=== PATIENT | female | born 1940 ===

== ENCOUNTER 2016-09-23 21:23 | Inpatient (IN) | payer MEDICARE, MEDICAID ==
[~2016-09-23] VITALS: Ht 162.6 cm; Wt 74.8 kg
--- NOTE | 2016-09-23 21:32 | NUR ---
PATIENT C/O SUDDEN ON SET OF LEFT PAIN. PAIN STARTED 2 DAYS AGO BUT HAS GOTTEN WORSE IN THE LAST DAY, PT IS ALERT, ORIENTED X 4, NO RESP DISTRESS NOTED OR REPORTED UPON ASSESSMENT... MD AT BEDSIDE...
[2016-09-23] MEDS ORDERED: HYDROMORPHONE 1 MG/1 ML DISP.SYRIN IV ONE (21:45)
[2016-09-23] MEDS ORDERED: IV NORMAL SALINE 1000 ML BAG IV ONE (21:45)
[2016-09-23] MEDS ORDERED: ONDANSETRON 4 MG/2 ML VIAL IV ONE (21:45)
[2016-09-23] MEDS ORDERED: HYDROMORPHONE 1 MG/1 ML DISP.SYRIN ONE (22:10)
[2016-09-23] MEDS ORDERED: ONDANSETRON 4 MG/2 ML VIAL ONE (22:10)
--- NOTE | 2016-09-23 22:20 | NUR ---
PATIENT OUT OF UNIT FOR CT SCAN VIA GURNY
--- NOTE | 2016-09-23 22:35 | NUR ---
PATIENT BACK FROM CT SCAN WITH NO DISTRESS NOTED
--- NOTE | 2016-09-23 23:43 | NUR ---
EPIC CONTACTED PER MEENA, MANAGER MASS TO HAVE PAGED....
[2016-09-24] MEDS ORDERED: LOSA1TAB39 PO (00:02)
[2016-09-24] MEDS ORDERED: PROP20TA7 PO (00:02)
[2016-09-24] MEDS ORDERED: LEVO88TA2 PO (00:02)
[2016-09-24] MEDS ORDERED: ASPI-605 PO (00:02)
[2016-09-24] MEDS ORDERED: MULT1TAB73 PO (00:02)
[2016-09-24] MEDS ORDERED: ESCI20TA37 PO (00:02)
[2016-09-24] MEDS ORDERED: ACYC400T PO (00:02)
[2016-09-24] MEDS ORDERED: ATOR10TA PO (00:02)
[2016-09-24] MEDS ORDERED: IV NORMAL SALINE 1000 ML BAG IV ONE (00:30)
[2016-09-24] MEDS ORDERED: IV D5 1/2 NS 1000 ML 1,000 ML IV PRN (01:20)
--- NOTE | 2016-09-24 01:22 | NUR ---
Pt. admitted to MED SUR[facility] , under care of Dr. Rehana Garza, Belongs List completed, pt is alert, oriented x 4, no resp distress noted or reported upon transfer assessment...
[2016-09-24] MEDS ORDERED: ZOLPIDEM 5 MG TABLET PO PRN (01:30)
[2016-09-24] MEDS ORDERED: Z GUARD REMEDY PASTE 57 GM TUBE TOP PRN (01:30)
[2016-09-24] MEDS ORDERED: ACETAMINOPHEN 325 MG TABLET PO PRN (01:30)
[2016-09-24] MEDS ORDERED: HYDROCODONE/APAP 5-325MG TABLET PO PRN (01:30)
[2016-09-24] MEDS ORDERED: ONDANSETRON 4 MG/2 ML VIAL IV PRN (01:30)
[2016-09-24] MEDS ORDERED: MAGNESIUM HYDROXIDE 30 ML LIQUID UDC PO PRN (01:30)
[2016-09-24 02:15] VITALS: BP 123/65
--- NOTE | 2016-09-24 02:15 | NUR ---
ADMITTED THIS76 Y.O.LADY FROM HOME,CHIEF C/O LEFT HIP PAIN 2DAYS AGO,ACCOMPANIED BY DTR.ELLIS..SHE HAS HAD AN EXTENSIVE MEDICAL HISTORY,ALERT,ORIENTED X4,ABLE TO UNDERSTAND SIMPLE URUGUAYAN,SPEAKS FARSI,DIDNT WANT TO BE ADMITTED IN THIS HOSPITAL,WANTS TO BE TRANSFERRED TO [facility].IV ACCESS ON RT.AC PATENT AND INTACT,USES FRACTURE NIETO,VOIDED FREELY WELL.KEPT DRY AND CLEAN.NO C/O PAIN AT TIME OF ARRIVAL.
[2016-09-24 04:00] VITALS: BP 118/62
--- NOTE | 2016-09-24 04:30 | NUR ---
COMPLETE LINEN CHANGE DONE,MYLENE CARE RENDERED.KEPT Warm and dry,call lite w/i reach.REQUESTED TO JUST LEAVE HER ALONE AND LET HER SLEEP.
--- NOTE | 2016-09-24 06:00 | NUR ---
REPOSITIONED FOR COMFORT,NEEDS ATTENDE TO.IVF INFUSING WELL.NPO OBSERVED.
[2016-09-24] MEDS: MORPHINE SULFATE 2 MG/1 ML DISP.SYRIN IV PRN (06:16)
[2016-09-24] MEDS: PANTOPRAZOLE SODIUM 40 MG TABLET.DR PO SCH (06:16)
[2016-09-24] MEDS ORDERED: MORPHINE SULFATE 2 MG/1 ML DISP.SYRIN ONE (06:17)
[2016-09-24] MEDS: ASPIRIN EC 81 MG TABLET.DR PO SCH (09:00)
[2016-09-24] MEDS ORDERED: Medication Not On Formulary EA (Multivitamins (Multivitamin) 1 EACH) PO SCH (09:00)
--- NOTE | 2016-09-24 09:15 | NUR ---
MEDS PULLED OUT FROM [facility] AND TAKEN OFF MAR DUE TO DUPLICATION.
[2016-09-24] MEDS ORDERED: MULTIVITAMINS,THERAPEUTIC TABLET ONE (09:16)
[2016-09-24] MEDS ORDERED: ASPIRIN EC 81 MG TABLET.DR PO ONE (09:16)
[2016-09-24] MEDS ORDERED: DOCUSATE SODIUM 250 MG CAPSULE PO ONE (09:16)
[2016-09-24] MEDS ORDERED: ACYCLOVIR 400 MG TABLET ONE (09:16)
[2016-09-24] MEDS ORDERED: PROPRANOLOL HCL 20 MG TABLET ONE (09:16)
[2016-09-24] MEDS ORDERED: PANTOPRAZOLE SODIUM 40 MG TABLET.DR PO ONE (09:17)
[2016-09-24] MEDS ORDERED: LEVOTHYROXINE SODIUM 88 MCG TABLET ONE (09:17)
--- NOTE | 2016-09-24 09:30 | NUR ---
SPOKE TO DAUGHTER RE. PT. STATUS. DAUGHTER STATED THAT PT. HAS HISTORY/TREATMENTS AT [facility]. IN ADDITION NO LABS TO BE DRAWN OR SURGERY PLANNED UNTIL SHE HAS SPOKEN TO [facility] PROVIDERS AT [facility].
[2016-09-24] MEDS: LEVOTHYROXINE SODIUM 88 MCG TABLET PO SCH (09:44)
[2016-09-24] MEDS: MULTIVITAMINS,THERAPEUTIC TABLET PO SCH (10:31)
[2016-09-24] MEDS: ACYCLOVIR 400 MG TABLET PO SCH (10:31)
[2016-09-24] MEDS: PROPRANOLOL HCL 20 MG TABLET PO SCH (10:36)
[2016-09-24 11:19] VITALS: BP 143/68
[2016-09-24] MEDS ORDERED: LOSA100T15 PO (12:11)
[2016-09-24] MEDS ORDERED: ESCITALOPRAM OXALATE 10 MG TABLET PO SCH (14:15)
[2016-09-24] MEDS ORDERED: MISCELLANEOUS MED XX PRN (15:15)
[2016-09-24 15:46] VITALS: BP 123/69
[2016-09-24] MEDS: LOSARTAN POTASSIUM 50 MG TABLET PO SCH (15:46)
[2016-09-24] MEDS: HYDROCHLOROTHIAZIDE 12.5 MG CAPSULE PO SCH (15:47)
[2016-09-24] MEDS ORDERED: POMA4CAP PO (15:50)
[2016-09-24] MEDS ORDERED: [UNRECOGNIZED DRUG - OTHER] PO (15:57)
[2016-09-24] MEDS ORDERED: HOME MED MISCELLANEOUS XX SCH (16:15)
[2016-09-24] MEDS: CITALOPRAM 10 MG TABLET PO SCH (16:59)
[2016-09-24 17:03] LABS: BASOPHILS % (AUTO) 0.2 % (0.0-2.0); EOSINOPHILS # (AUTO) 0.3 K/uL (0.0-0.7); EOSINOPHILS % (AUTO) 5.5 % (0.0-7.0); HEMATOCRIT 25.3 % (37-47); HEMOGLOBIN 8.7 G/DL (12.0-16.0); LYMPHOCYTES # (AUTO) 1.4 K/UL (0.8-4.8); LYMPHOCYTES % (AUTO) 28.4 % (20.5-51.5); MEAN CORPUSCULAR HEMOGLOBIN 31.6 UUG (27.0-31.0); MEAN CORPUSCULAR HGB CONC 34 g/dL (32.0-37.0); MONOCYTES # (AUTO) 0.6 K/UL (0.1-1.30); MONOCYTES % (AUTO) 11.8 % (0.0-11.0); NEUTROPHILS # (AUTO) 2.5 K/UL (1.8-8.9); NEUTROPHILS % (AUTO) 54.1 % (38.5-71.5); PLATELET COUNT (AUTO) 172 K/UL (150-450); RED BLOOD CELL COUNT(AUTO) 2.75 MIL/UL (4.2-5.4); WHITE BLOOD COUNT (AUTO) 4.8 K/UL (4.0-11.2)
[2016-09-24 17:08] LABS: ALANINE AMINOTRANSFERASE 14 U/L (14-59); ALKALINE PHOSPHATASE 42 U/L (50-136); ASPARTATE AMINOTRANSFERASE 38 U/L (15-37); BILIRUBIN,TOTAL 0.5 mg/dL (0.2-1.0); CARBON DIOXIDE 30 mmol/L (21-32); CHLORIDE 102 mmol/L (98-107); CREATININE 1.5 mg/dL (0.6-1.3); GLUCOSE 87 mg/dL (74-106); HDL CHOLESTEROL 26 mg/dL (40-60); MAGNESIUM 1.7 mg/dL (1.8-2.4); PHOSPHOROUS 4.7 mg/dL (2.5-4.9); POTASSIUM 3.1 mmol/L (3.5-5.1); TOTAL PROTEIN, SERUM 10.8 g/dL (6.4-8.2); TRIGLYCERIDES 157 MG/DL (30-150); UREA NITROGEN, BLOOD 14 mg/dL (7-18)
[2016-09-24 17:41] LABS: THYROID STIMULATING HORMONE 0.461 mIU/mL (0.358-3.740)
--- NOTE | 2016-09-24 17:41 | NUR ---
Pt. resting in bed throughout shift. Family and pt. spoke with surgeon this afternoon and no fx present per surgeon. Pt. planning on transferring to [facility] when bed available to further treatment as scheduled. Medications brought in and reconciled. Pt. agreed to to have labs drawn. MIGUEL Tilley notified of labs processed. Pt. able to reposition self with minimal assist and encouraged freq. repositioning . Iv sl.
[2016-09-24] MEDS ORDERED: MAGNESIUM SULFATE/D5W 100 ML IV SCH (18:00)
[2016-09-24] MEDS ORDERED: POTASSIUM CHLORIDE 20 MEQ TAB.PRT.SR PO ONE (18:00)
[2016-09-24] MEDS ORDERED: IV NS 1000 ML 1,000 ML IV PRN (18:00)
[2016-09-24] MEDS: PATIENT MAY USE OWN MED- MD OK PO SCH (18:27)
[2016-09-24 20:00] VITALS: BP 149/75
[2016-09-24] MEDS: ATORVASTATIN 10 MG TABLET PO SCH (20:53)
[2016-09-24] MEDS: DOCUSATE SODIUM 250 MG CAPSULE PO SCH (21:00)
[2016-09-24 21:29] LABS: CHOLESTEROL 92 mg/dL (<200)
[2016-09-25 04:38] VITALS: BP 148/69
--- NOTE | 2016-09-25 06:00 | NUR ---
PT SLEPT INTERMITTENTLY, IN NO ACUTE DISTRESS. PT C/O OF LEFT HIP PAIN UPON MOVEMENT. PT KEPT CLEAN/DRY, USES BEDPAN FOR TOILETING NEEDS. IVF RUNNING, NO INFILTRATION NOTED. BED ALARM ON, CALL LIGHT WITHIN REACH. WILL CONTINUE TO MONITOR.
[2016-09-25] MEDS: PANTOPRAZOLE SODIUM 40 MG TABLET.DR PO SCH (06:03)
[2016-09-25] MEDS: LEVOTHYROXINE SODIUM 88 MCG TABLET PO SCH (06:03)
--- NOTE | 2016-09-25 08:00 | NUR ---
Awake, alert, oriented x 4. IVF infusing.
[2016-09-25] MEDS: MORPHINE SULFATE 2 MG/1 ML DISP.SYRIN IV PRN (08:28)
--- NOTE | 2016-09-25 08:58 | NUR ---
08:50 Spoke to Risa [phone]; ] from [facility] and she requested for the MD/CRACKING AND FANNING MACHINE OPERATOR to call their hospitalist [ ] for a Peer to Peer to expidite the transfer. Informed Treva Pinon CRACKING AND FANNING MACHINE OPERATOR and she will call them. 08:58 Spoke to the patient's son, Lesa [ ], who also called [facility] Hospitalist and he stated the he spoke to Joi from Dr. Elkin Nguyen's [ ] office and they will also contact [facility] for the transfer. 09:18 Monty from [facility] [ ; ] called and requested for the patient's facesheet. Since the patient has chemotherapy scheduled with them today, they will try to find a bed for her. Once a bed is secured, they will call the RN Station to proceed with the transfer. Updated the charge authorizerMason. Addendum: 09/25/16 at 1634 by MELISSA BLACKBURN CMG 16:14 Spoke to Ladarius from [facility] and she stated that they are just waiting for an available bed. they will call the RN station once they have it.
[2016-09-25] MEDS: HYDROCHLOROTHIAZIDE 12.5 MG CAPSULE PO SCH ×2 (09:00→09:19)
--- NOTE | 2016-09-25 09:00 | NUR ---
With pain when moving, explained about pain medications but refused to take medications
[2016-09-25] MEDS: CITALOPRAM 10 MG TABLET PO SCH (09:12)
[2016-09-25] MEDS: MULTIVITAMINS,THERAPEUTIC TABLET PO SCH (09:13)
[2016-09-25] MEDS: ASPIRIN EC 81 MG TABLET.DR PO SCH (09:13)
[2016-09-25] MEDS: PROPRANOLOL HCL 20 MG TABLET PO SCH (09:18)
[2016-09-25] MEDS: LOSARTAN POTASSIUM 50 MG TABLET PO SCH (09:18)
[2016-09-25] MEDS: ACYCLOVIR 400 MG TABLET PO SCH (09:21)
[2016-09-25] MEDS: PATIENT MAY USE OWN MED- MD OK PO SCH (09:21)
[2016-09-25] MEDS ORDERED: HYDR-3326 PO (10:25)
[2016-09-25] MEDS ORDERED: Morphine Sulfate Inj IV (10:25)
[2016-09-25] MEDS ORDERED: CITA10TA9 PO (10:25)
[2016-09-25] MEDS ORDERED: DOCU250C14 PO (10:25)
[2016-09-25] MEDS ORDERED: PANT40TA2 PO (10:25)
[2016-09-25] MEDS ORDERED: ACET325T53 PO (10:25)
--- NOTE | 2016-09-25 11:00 | NUR ---
Requested IVF and Saline lock discontinued and removed.
[2016-09-25 11:36] VITALS: BP 146/81
[2016-09-25] MEDS ORDERED: LOPERAMIDE HCL 2 MG CAPSULE PO PRN (15:15)
--- NOTE | 2016-09-25 15:24 | NUR ---
With loose BM 4X, Called to Treva SUPERVISOR STAGE CARPENTRY with orders. Imodium po given
[2016-09-25 15:33] VITALS: BP 125/68
--- NOTE | 2016-09-25 18:29 | NUR ---
Forrest from [facility] called, saying there is an available bed tonight, but currently the room/bed is not clean, so they can not give out a room no. and will call back with it.
--- NOTE | 2016-09-25 19:30 | NUR ---
RECEIVED PATIENT ALERT, IN NO ACUTE DISTRESS. FAMILY AT BEDSIDE. D/C IN PROCESS. WAITING FOR CONFIRMATION FROM [facility] TRANSFER.
[2016-09-25 19:49] VITALS: BP 141/77
[2016-09-25] MEDS: DOCUSATE SODIUM 250 MG CAPSULE PO SCH (20:16)
[2016-09-25] MEDS: ATORVASTATIN 10 MG TABLET PO SCH (20:17)
--- NOTE | 2016-09-25 20:30 | NUR ---
REPORT GIVEN TO TREMAYNE LAWSON [facility]. MED TRANSPORT TO BLOCK OUT MACHINE OPERATOR PATIENT APPROX 2049.
--- NOTE | 2016-09-25 21:00 | NUR ---
PT PICKED UP BY MED TRANSPORT FOR TRANSFER TO [facility] RM [address] UNDER THE CARE OF DR. POWER. PT IS ALERT, IN NO ACUTE DISTRESS, VS STABLE, PT IS AFEBRILE. FAMILY/DAUGHTER ACCOMPANIED BY PATIENT. PT WAS TRANSFERRED VIA GURNEY. PT'S D/C PAPERS WITH THE PARAMEDICS, PT BELONGING'S AND PT'S OWN MEDS SIGNED AND ACCOUNTED FOR.
== END 2016-09-25 21:10 | disposition short-term general hospital (02) | DRG 840 ==
LOC: ER 21:24 → TELE 09-24 01:01 → MED 09-24 01:22 → TELE 09-24 01:24 → MED 09-24 07:08
DX: C90.00 Multiple myeloma not having achieved remission (principal); E43 Unspecified severe protein-calorie malnutrition; M25.552 Pain in left hip; E89.0 Postprocedural hypothyroidism; Z88.0 Allergy status to penicillin; M43.8X8 Other specified deforming dorsopathies, sacral and sacrococcygeal region; D53.9 Nutritional anemia, unspecified; M25.452 Effusion, left hip; E78.5 Hyperlipidemia, unspecified; I10 Essential (primary) hypertension; E87.6 Hypokalemia; E83.42 Hypomagnesemia; K57.30 Diverticulosis of large intestine without perforation or abscess without bleeding; Z79.899 Other long term (current) drug therapy
CPT/HCPCS: 36415; 71010; 72192; 83605; 83735; 84100; 84443; 85025; 93005; A4663; J1170; J2270; J2405; J3475; J3490; J7030